=== PATIENT | female | born 2000 | race Caucasian/White ===

== ENCOUNTER 2019-08-16 18:18 | Outpatient (CLI) | payer OTHER ==
[2019-08-16 18:34] VITALS: BP 123/66
[2019-08-16] MEDS ORDERED: MAPA500T2 PO (18:47)
[2019-08-16] MEDS ORDERED: PRENTAB9 PO (18:47)
== END 2019-08-16 19:35 | disposition home or self-care (01) ==
LOC: M LDO 18:18
PROVIDERS: ATTEND Obstetrics & Gynecology
DX: O26.893 Other specified pregnancy related conditions, third trimester (principal); Z3A.38 38 weeks gestation of pregnancy
CPT/HCPCS: 59025; G0378; G0463; U0002

== ENCOUNTER 2019-08-22 15:58 | Inpatient (IN) | payer OTHER ==
[2019-08-22] VITALS (8 sets, daily range): BP systolic 118–129; BP diastolic 66–75
[~2019-08-22] VITALS: Ht 170.2 cm; Wt 73.1 kg
[~2019-08-22 15:58] MED LIST: MAPA500T2 PO; PRENTAB9 PO
[2019-08-22] MEDS ORDERED: FERR325T81 PO (17:13)
[2019-08-22] MEDS ORDERED: VITA100T59 PO (17:13)
[2019-08-22] MEDS ORDERED: ACETAMINOPHEN 500 MG TAB PO ONE (17:15)
[2019-08-22] MEDS ORDERED: OXYTOCIN 30 UNITS IN 0.9% NaCl 500ML IV BAG (J2590) As Ordered ONE (18:08)
--- NOTE | 2019-08-22 18:37 | HPEPDOC ---
Obstetrical History & Physical General Date of Admission Aug 22, 2019 at 17:47 History of Present Illness 18-year-old 3, para 1 who presents at 39 weeks' by first trimester ultra sound, complaints of contractions. She reports contractions that of increasing intensity and frequency throughout the day. She denies any vaginal bleeding, leakage of fluid. Reports active movement. Her course is remarkable for late entry of care. She transferred to [facility] last week she was previously seen in [place] obst[facility]rical practice. Chief Complaint: Contractions, term Information Provided By: Patient Age: 18 : 3 Livin Dating Final EDC: Aug 29, 2019 Final EDC by: LMP, 1st trimester (US) EGA at Admission: 39 Past Medical History Past Obstetrical History : Past Obstetrical History: Multigravida Type of Delivery: Spontaneous Vaginal Del. 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 BREAST: . ABDOMEN: Gravid and non-tender to touch. FETUS: Is vertex (VTX) by sterile vaginal examination (SVE), fetus is vertex (VTX) by Kadeem. HEART RATE: Regular rate and rhythm. LUNGS: Clear to auscultation (CTA). Vital Signs/I&O Vital Signs Date Time Temp Pulse Resp B/P (MAP) Pulse Ox O2 Delivery O2 Flow Rate FiO2 08/22/19 17:41 82 18 124/74 (91) 08/22/19 16:22 98.2 98 Room Air Laboratory Data 24H LABS Laboratory Tests 2 08/22/19 17:48: Serology Scanned Report Hepatitis B Testing Pertinent Laboratoy Data Blood Type: B+ RBC Antibody Screen: Negative HIV: Negative Hepatitis B: Negative Rapid Plasma Reagin: Nonreactive Rubella: Immune Chlamydia/Gonorrhea: Negative Group B Streptococcus: Unknown Vaginal Examination Dilation: 8 cm Effacement: 100% Station: +1 Cervical Consistency: Soft Cervical Position: Anterior Presentation: Cephalic presentation Assessment Variability: Moderate Accelerations: Positive Tocometer Contractions: Yes Frequency: regular Assessment/Plan Assessment 18-year-old 3, para 2 at 39 weeks 0 days estimated gestational age in active labor. Reassuring status. Admit to labor and delivery, CBC, RPR, type and screen Anticipate spontaneous vaginal delivery Plan Admit and orient. 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 Diet: Regular. Group B Streptococcus (GBS), unknown. Labs and intravenous (IV) per unit protocol. Counseled on Pitocin and induction of labor (IOL). Anticipate normal spontaneous delivery (). C-S as appropriate. ITALIA MENG MD. Aug 22, 2019 18:37
--- NOTE | 2019-08-22 18:40 | DNPDOC ---
[facility] Delivery Note Delivery Note DATE OF DELIVERY: 08/22/2019 TIME OF : 182 GENDER: Male. APGARS:, 9 and 9. WEIGHT: 3360 Grams or 7 pounds 7 ounces. LACERATIONS:. None ANESTHESIA:. None. ESTIMATED BLOOD LOSS: 300ml COUNTS: 5 laparotomy sponges accounted for prior to after delivery. DELIVERY NOTE: 08/22/2019 at 1821, Mrs. Andrade a 18-year-old 3, now para 3, had a spontaneous vaginal delivery of viable male infant, Apgars 9 and 9. Weight was 3360 g or 7 lbs. 7 oz. Head was delivered occiput anterior (OA), followed by delivery of the shoulders and corpus. was handed to mom with a good cry. Cord was clamped times two and was cut. Placenta was then drained and delivered grossly intact. A premixed bag of 500 mL of normal saline with 30 units of Pitocin was then bolused along with uterine massage until the uterus was firm. On inspection, cervix, vagina, perineum was grossly intact and hemostatic. Mom and baby in recovery on stable condition. Mom decided to remain in son , ITALIA Villafana MD. Aug 22, 2019 18:40
[2019-08-22] MEDS ORDERED: OXYTOCIN DRIP 30 UNITS in IV 1 EA IV SCH (19:27)
[2019-08-22] MEDS ORDERED: RHOGAM 300 MCG (1500 IU) INJ (J2790) IM SCH (19:30)
[2019-08-22] MEDS ORDERED: IBUPROFEN 600MG TAB PO PRN (19:30)
[2019-08-22] MEDS ORDERED: MEASLES,MUMPS,RUBELLA VACCINE INJ (MMR-II) (90707) SC SCH (19:30)
[2019-08-22] MEDS ORDERED: ACETAMINOPHEN 500 MG TAB PO PRN (19:30)
[2019-08-22] MEDS ORDERED: METHYLERGONOVINE MALEATE 0.2 MG TAB PO PRN (19:30)
[2019-08-22] MEDS ORDERED: DIBUCAINE 1% OINTMENT 30GM TOP PRN (19:30)
[2019-08-22] MEDS ORDERED: ACETAMINOPHEN TAB 650MG DOSE (2X325MG) PO PRN (19:30)
[2019-08-22] MEDS ORDERED: DOCUSATE SODIUM 100 MG CAP PO PRN (19:30)
[2019-08-22] MEDS: IBUPROFEN 800 MG TAB PO PRN (19:39)
[2019-08-22 19:43] LABS: HEMATOCRIT 33.8 % (36.0-47.0); HEMOGLOBIN 11.1 g/dl (12.0-15.5); MEAN CORPUSCULAR HEMOGLOBIN 27.1 pg (27.0-33.0); MEAN CORPUSCULAR HGB CONC 32.8 g/dl (32.0-36.5); MEAN CORPUSCULAR VOLUME 82.4 fl (80.0-96.0); PLATELET COUNT, AUTOMATED 144 10^3/uL (150-450); WHITE BLOOD COUNT 15.1 10^3/uL (4.0-10.0)
[2019-08-23] MEDS: IBUPROFEN 800 MG TAB PO PRN ×2 (04:01→18:19)
[2019-08-23 06:16] VITALS: BP 112/57
[2019-08-23] MEDS: PRENATAL VITAMINS CHEWABLE TABLET PO SCH (09:05)
[2019-08-23 18:03] VITALS: BP 114/67
[2019-08-24 06:04] VITALS: BP 123/71
[2019-08-24] MEDS ORDERED: DOCU100C16 PO (06:29)
[2019-08-24] MEDS ORDERED: IBUP80TA PO (06:29)
[2019-08-24] MEDS ORDERED: DIBU10OI TOP (06:29)
[2019-08-24] MEDS: PRENATAL VITAMINS CHEWABLE TABLET PO SCH (08:16)
== END 2019-08-24 17:15 | disposition home or self-care (01) | DRG 807 ==
LOC: M LDO 15:58 → M LDI 17:47 → M OBS 20:17
PROVIDERS: ADMIT Obstetrics & Gynecology; ATTEND Obstetrics & Gynecology
PROC: 10E0XZZ Delivery of Products of Conception, External Approach (ICD-10-PCS; principal; 2019-08-22)
DX: O80 Encounter for full-term uncomplicated delivery (principal); Z37.0 Single live birth; Z3A.39 39 weeks gestation of pregnancy

== ENCOUNTER → 2021-09-17 | Outpatient (REF) | payer OTHER ==
[~2021-09-17] MED LIST changes: +DIBU28OI2 TOP; +DOCU100C16 PO; +FERR325T81 PO; +IBUP80TA PO; +VITA100T59 PO
[2021-09-17 12:59] LABS: APPEARANCE, URINE MANUAL CLEAR (CLEAR)
[2021-09-17 13:00] LABS: BILIRUBIN, URINE MANUAL NEGATIVE (NEGATIVE); BLOOD URINE MANUAL NEGATIVE (NEGATIVE); COLOR, URINE MANUAL LT YELLOW (YELLOW); GLUCOSE, URINE (UA) MANUAL NEGATIVE (NEGATIVE); KETONE, URINE MANUAL NEGATIVE (NEGATIVE); LEUKOCYTE ESTERASE, URINE MAN TRACE (NEGATIVE); NITRITE, URINE MANUAL NEGATIVE (NEGATIVE); PROTEIN, URINE MANUAL NEGATIVE (NEGATIVE); UROBILINOGEN, URINE MANUAL NORMAL (NORMAL)
== END ==
LOC: M LAB REF 11:56
PROVIDERS: ATTEND Physician Assistant
DX: N39.0 Urinary tract infection, site not specified (principal)